=== PATIENT | female | born 1985 | race Caucasian/White ===

== ENCOUNTER 2017-01-20 20:04 | Emergency (ER) | payer OTHER ==
[~2017-01-20] VITALS: Ht 160 cm; Wt 96.1 kg
[~2017-01-20 20:04] MED LIST: DOXY100T PO; PROMSYP PO; Z.0.NO CURRENT MEDS
[2017-01-20 20:23] VITALS: BP 111/69; PULSE 118; RESP 18; TEMP 100; O2SAT 98
[2017-01-20] MEDS ORDERED: PREN29TA PO (20:35)
[2017-01-20] MEDS ORDERED: SODIUM CHLOR 0.9% 1000 ML INJ 1,000 ML IV SCH (20:39)
[2017-01-20] MEDS ORDERED: SODIUM CHLORIDE 0.9% FLUSH 10 ML FLUSH IV FLUSH PRN (20:45)
[2017-01-20] MEDS ORDERED: PROMETHAZINE INJ 25 MG/ML VIAL IM ONE (20:45)
--- NOTE | 2017-01-20 20:51 | PD ---
HPI Chief Complaint: Abdominal Pain Time Seen by Provider: 20:29 Travel History International Travel<30 days: No Contact w/Intl Traveler<30days: No Traveled to known affect area: No History of Present Illness HPI 31-year-old female complains of epigastric abdominal pain, nausea vomiting diarrhea. Patient states that the symptoms started 2 days ago. Patient is about 20 weeks with twin . Patient has been seen by implementation project coordinator. Patient states that she started having burning pain epigastric area with nausea vomiting for the past 3 days. Patient states that the pain to burning pain intermittent pain localized throughout epigastric area. Patient denies any pain radiation. Patient denies any fever chills. Patient denies any dysuria or frequency. Patient denies any vaginal discharge or bleeding. 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) Immunizations Current: No Tetanus Vaccination: Unknown Influenza Vaccination: No ?: LMP: AUG 16 Social History Alcohol Use: No Tobacco Use: No Substance Use: No Allergies-Medications (Allergen,Severity, Reaction): Coded Allergies: Sulfa (Sulfonamide Antibiotics) (Unverified Allergy, Severe, UNKNOWN, 01/20) Reported Meds & Prescriptions Reported Meds & Active Scripts Active Reported Plus Iron 29-1 mg ( Vit-Iron Carbonyl) 29 Mg Iron-1 Mg Tab 1 Tab PO DAILY Review of Systems General / Constitutional: No: Fever Eyes: No: Visual changes HENT: No: Headaches Cardiovascular: No: Chest Pain or Discomfort Respiratory: No: Shortness of Breath Gastrointestinal: Positive: Nausea, Vomiting, Diarrhea, Abdominal Pain Genitourinary: No: Dysuria Musculoskeletal: No: Pain Skin: No Rash Neurologic: No: Weakness Psychiatric: No: Depression Endocrine: No: Polydipsia Hematologic/Lymphatic: No: Easy Bruising Physical Exam Narrative GENERAL: Well-nourished, well-developed patient. SKIN: Focused skin assessment warm/dry. HEAD: Normocephalic. EYES: No scleral icterus. No injection or drainage. NECK: Supple, trachea midline. No JVD or lymphadenopathy. CARDIOVASCULAR: Regular rate and rhythm without murmurs, gallops, or rubs. RESPIRATORY: Breath sounds equal bilaterally. No accessory muscle use. GASTROINTESTINAL: Abdomen soft, nondistended. Patient has mild tenderness on palpation epigastric area. No rebound tenderness. No mass. MUSCULOSKELETAL: No cyanosis, or edema. BACK: Nontender without obvious deformity. No CVA tenderness. Neurologic exam normal. Data Data Last Documented VS Vital Signs Date Time Temp Pulse Resp B/P (MAP) Pulse Ox O2 Delivery O2 Flow Rate FiO2 01/20/17 21:01 98 01/20/17 20:35 18 01/20/17 20:23 100.0 118 111/69 (83) Orders Orders Complete Blood Count With Diff (01/20/17 20:39) Comprehensive Metabolic Panel (01/20/17 20:39) Lipase (01/20/17 20:39) Urinalysis - C+S If Indicated (01/20/17 20:39) Iv Access Insert/Monitor (01/20/17 20:39) Ecg Monitoring (01/20/17 20:39) Oximetry (01/20/17 20:39) Sodium Chlor 0.9% 1000 Ml Inj (Ns 1000 M (01/20/17 20:39) Sodium Chloride 0.9% Flush (Ns Flush) (01/20/17 20:45) Promethazine Inj (Phenergan Inj) (01/20/17 20:45) Pantoprazole (Protonix) (01/20/17 21:00) Labs Laboratory Tests Test 01/20/17 20:45 White Blood Count 11.7 TH/MM3 Red Blood Count 4.19 MIL/MM3 Hemoglobin 12.5 GM/DL Hematocrit 36.3 % Mean Corpuscular Volume 86.6 FL Mean Corpuscular Hemoglobin 30.0 PG Mean Corpuscular Hemoglobin Concent 34.6 % Red Cell Distribution Width 12.4 % Platelet Count 199 TH/MM3 Mean Platelet Volume 8.6 FL Neutrophils (%) (Auto) 87.5 % Lymphocytes (%) (Auto) 8.1 % Monocytes (%) (Auto) 3.1 % Eosinophils (%) (Auto) 0.8 % Basophils (%) (Auto) 0.5 % Neutrophils # (Auto) 10.2 TH/MM3 Lymphocytes # (Auto) 0.9 TH/MM3 Monocytes # (Auto) 0.4 TH/MM3 Eosinophils # (Auto) 0.1 TH/MM3 Basophils # (Auto) 0.1 TH/MM3 CBC Comment DIFF FINAL Differential Comment Urine Color YELLOW Urine Turbidity CLEAR Urine pH 6.0 Urine Specific Dalton 1.016 Urine Protein NEG mg/dL Urine Glucose (UA) NEG mg/dL Urine Ketones 40 mg/dL Urine Occult Blood NEG Urine Nitrite NEG Urine Bilirubin NEG Urine Leukocyte Esterase NEG Urine RBC 0-3 /hpf Urine WBC 3-5 /hpf Urine Squamous Epithelial Cells > 8 /hpf Urine Bacteria FEW /hpf Urine Mucus FEW /lpf Microscopic Urinalysis Comment CULT NOT INDICATED Blood Urea Nitrogen 5 MG/DL Creatinine 0.50 MG/DL Random Glucose 84 MG/DL Total Protein 7.4 GM/DL Albumin 2.8 GM/DL Calcium Level 8.5 MG/DL Alkaline Phosphatase 82 U/L Aspartate Amino Transf (AST/SGOT) 25 U/L Alanine Aminotransferase (ALT/SGPT) 22 U/L Total Bilirubin 0.3 MG/DL Sodium Level 138 MEQ/L Potassium Level 3.6 MEQ/L Chloride Level 107 MEQ/L Carbon Dioxide Level 21.1 MEQ/L Anion Gap 10 MEQ/L Estimat Glomerular Filtration Rate 144 ML/MIN Lipase 101 U/L [facility] Medical Decision Making Medical Screen Exam Complete: Yes Emergency Medical Condition: Yes Interpretation(s) 21:13 PM. CBC WBC 11.7. 87 neutrophil. CMP within normal limit. UA negative. Differential Diagnosis Differential diagnosis including gastritis, PUD, appendicitis, cholecystitis, colitis, UTI, pyelonephritis. Narrative Course 31-year-old female with epigastric abdominal pain, nausea vomiting diarrhea. Normal saline solution 1 L IV bolus. Phenergan 25 mg IM. Protonix 40 mg by mouth. Procedures Procedure Narrative Emergency Department Pelvic ultrasound was performed with patient consent. The curvilinear probe was used in the transverse and sagittal views within the suprapubic region revealing twin intrauterine . heart rate was in the 140s. Fetus active Diagnosis Primary Impression: Gastroenteritis Patient Instructions: General Instructions Additional Instructions: Take medications as directed. Follow-up with personal physician. Return if persistent problem or worse. Med/Other Pt SpecificInfo: Prescription(s) given Scripts Pantoprazole (Protonix) 20 Mg Tab 20 MG PO DAILY for Reflux, #14 TAB 0 Refills Prov: Owen Sherwood MD 01/20/17 Promethazine (Phenergan) 25 Mg Tablet 25 MG PO Q6H Y for NAUSEA OR VOMITING, #12 TAB 0 Refills Prov: Owen Sherwood MD 01/20/17 Disposition: 01 DISCHARGE HOME Condition: Stable Owen Sherwood MD Jan 20, 2017 20:51
[2017-01-20 20:59] LABS: BLOOD, URINE NEG (NEG); GLUCOSE,URINE NEG (NEG); KETONE, URINE 40 mg/dL (NEG); NITRITE,URINE NEG (NEG)
[2017-01-20] MEDS ORDERED: PANTOPRAZOLE SOD 40 MG DELAYED RELEASE TAB PO ONE (21:00)
[2017-01-20 21:01] VITALS: O2SAT 98
[2017-01-20 21:07] LABS: URINE COLOR YELLOW (YELLW/STRAW)
[2017-01-20 21:08] LABS: BACTERIA, URINE FEW /hpf; COMMENT (UR) CULT NOT INDICATED; CULTURE IF INDICATED CULT NOT INDICATED; MUCUS URINE FEW /lpf (OCC); RBC, URINE 0-3 /hpf (0-3); SQUAMOUS EPITHELIAL CELL URINE > 8 /hpf (0-5)
[2017-01-20 21:09] LABS: CHLORIDE 107 MEQ/L (98-107); POTASSIUM 3.6 MEQ/L (3.5-5.1); SODIUM (NA) 138 MEQ/L (136-145)
[2017-01-20 21:10] LABS: AUTOMATED NEUTROPHIL # 10.2 TH/MM3 (1.8-7.7); BASOPHIL # 0.1 TH/MM3 (0-0.2); BASOPHIL % 0.5 % (0.0-2.0); EOSINOPHIL # 0.1 TH/MM3 (0-0.4); EOSINOPHIL % 0.8 % (0.0-4.0); HEMATOCRIT 36.3 % (35.0-46.0); HEMO FLAGS DIFF FINAL; LYMPH % 8.1 % (9.0-44.0); LYMPHOCYTE # 0.9 TH/MM3 (1.0-4.8); MEAN CELL VOLUME 86.6 FL (80.0-100.0); MEAN CORPUSCULAR HGB CONC 34.6 % (32.0-36.0); MONO % 3.1 % (0.0-8.0); NEUT % 87.5 % (16.0-70.0); PLATELET COUNT 199 TH/MM3 (150-450); RED BLOOD COUNT 4.19 MIL/MM3 (4.00-5.30); RED CELL DISTRIBUTION WIDTH 12.4 % (11.6-17.2); WHITE BLOOD COUNT 11.7 TH/MM3 (4.0-11.0)
[2017-01-20 21:13] LABS: ANION GAP 10 MEQ/L (5-15); BICARBONATE 21.1 MEQ/L (21.0-32.0); BLOOD UREA NITROGEN 5 MG/DL (7-18)
[2017-01-20 21:15] LABS: ALT (GPT) 22 U/L (10-53)
[2017-01-20 21:16] LABS: AST (GOT) 25 U/L (15-37); GLOMERULAR FILTRATION RATE 144 ML/MIN (>89)
[2017-01-20 21:17] LABS: TOTAL BILIRUBIN ADULT 0.3 MG/DL (0.2-1.0)
[2017-01-20 21:18] LABS: ALKALINE PHOSPHATASE 82 U/L (45-117)
[2017-01-20] MEDS ORDERED: PANT20 PO (22:14)
[2017-01-20] MEDS ORDERED: PROM25TA10 PO (22:14)
[2017-01-20 22:15] VITALS: BP 107/69; PULSE 94; RESP 18; O2SAT 99
== END 2017-01-20 22:29 | disposition home or self-care (01) ==
LOC: PHED 20:04
DX: O99.612 Diseases of the digestive system complicating pregnancy, second trimester (principal); K52.9 Noninfective gastroenteritis and colitis, unspecified; O30.002 Twin pregnancy, unspecified number of placenta and unspecified number of amniotic sacs, second trimester; H91.92 Unspecified hearing loss, left ear; Z86.59 Personal history of other mental and behavioral disorders; Z3A.20 20 weeks gestation of pregnancy
CPT/HCPCS: 80053; 81001; 83690; 85025; 96360; 96372; 99285; J2550; J7030

== ENCOUNTER 2017-04-23 11:44 | Emergency (ER) | payer OTHER, MEDICAID ==
[~2017-04-23 11:44] MED LIST changes: -DOXY100T PO; +PANT20 PO; +PREN29TA PO; +PROM25TA10 PO; -PROMSYP PO; -Z.0.NO CURRENT MEDS
--- NOTE | 2017-04-23 13:25 | PD ---
HPI Chief Complaint blurry vision, resolved Date Seen: Apr 23, 2017 Time Seen: 13:16 Travel History International Travel<30 Days: No Contact w/Intl Traveler<30Days: No Known Affected Area: No History of Present Illness HPI 31y/p G1 @ 34.3wks. She has PNC with Dr. Clemente. conceived with clomid and is di/di twins. She presents today following an episode of acute blurry vision which was bilateral following looking at her phone and texting. She tried rubbing her eyes and taking out her contacts and cleaning them but the blurriness continued. She became very scared/anxious and come to the hospital. The blurriness resolved during that time. She does not have any h/o migraines/auras. States this has never happened to her before. She said that she recently went to see her eye doctor and was told her vision drastical changed (-5.0 to -8.0) but they advised this was common in and to await delivery before purchasing new glasses which may become obsolete post . +FM x2, no LOF, no VB, no ctx. Weeks Gestation: 34 Para: 0 : 1 History Past Medical History Narrative Medical PCOS Obstetric History Obstetric History 1. current, di/di twins from clomid Past Surgical History Surgical History: No Previous Surgery Family History Family History: Negative Social History Alcohol Use: No Tobacco Use: No Substance Abuse: No Allergies-Medications (Allergen,Severity, Reaction): Coded Allergies: Sulfa (Sulfonamide Antibiotics) (Unverified Allergy, Severe, UNKNOWN, ) Home Meds Active Scripts Pantoprazole (Protonix) 20 Mg Tab, 20 MG PO DAILY for Reflux, #14 TAB 0 Refills Prov:Owen Sherwood MD 01/20/17 Promethazine (Phenergan) 25 Mg Tablet, 25 MG PO Q6H Y for NAUSEA OR VOMITING, # 12 TAB 0 Refills Prov:Owen Sherwood MD 01/20/17 Reported Medications Vit-Iron Carbonyl ( Plus Iron 29-1 mg) 29 Mg Iron-1 Mg Tab, 1 TAB PO DAILY for Nutritional Supplement, #30 TAB 0 Refills 01/20/17 Review of Systems Except as stated in HPI: all other systems reviewed are Neg Physical Exam Narrative General: well developed, well nourished, no acute distress HEENT: normocephalic atraumatic, extraocular movements intact, neck supple Abdomen: soft, gravid, nontender, nondistended Extremities: full range of motion Skin: normal coloration, no rashes, no suspicious skin lesions noted Neurologic: cranial nerves 2-12 grossly intact, normal muscle tone, normal gait Psychiatric: normal mood and affect, appropriate FHTs: 145 x2, +accels, baby B with mild variables, moderate variability, reactive Nesco: occasional ctx Data Data Vital Signs Reviewed: Yes Orders Orders Vital Signs (Adult) .ON ADMISSION (04/23/17 13:15) ^ Labor Status (04/23/17 13:15) ^ Non Stress Test (04/23/17 13:15) Ed Discharge Order (04/23/17 13:15) MDM Plan 31y/o G1 @ 34.3wks with jerad twins and blurry vision this morning which resolved. -- NST x 2 reactive and age appropriate -- BPs normal, no s/s of preE -- likely vision related Dispo: reassurance provided, precautions reviewed, stable for d/c Diagnosis Diagnosis: Primary Impression: 34 weeks gestation of Additional Impressions: Dichorionic diamniotic twin in third trimester Blurry vision, bilateral Jayce Tripp MD Apr 23, 2017 13:25
[2017-04-23 14:01] LABS: BACTERIA, URINE OCC /hpf; BILIRUBIN, URINE NEG (NEG); BLOOD, URINE NEG (NEG); GLUCOSE,URINE NEG (NEG); KETONE, URINE NEG (NEG); NITRITE,URINE NEG (NEG); SQUAMOUS EPITHELIAL CELL URINE 4 /hpf (0-5); URINE COLOR LIGHT-YELLOW (YELLW/STRAW); URINE LEUKOCYTE ESTERASE TRACE (NEG)
== END 2017-04-23 13:31 | disposition home or self-care (01) ==
LOC: HOBED 11:44
DX: O26.893 Other specified pregnancy related conditions, third trimester (principal); H53.8 Other visual disturbances; O30.043 Twin pregnancy, dichorionic/diamniotic, third trimester; Z3A.34 34 weeks gestation of pregnancy; Z88.2 Allergy status to sulfonamides
CPT/HCPCS: 81001; 99283

== ENCOUNTER 2017-05-11 16:01 | Observation (INO) | payer OTHER, MEDICAID ==
[2017-05-11] VITALS (8 sets, daily range): BP systolic 125–137; BP diastolic 72–88; PULSE 76–92; RESP 18–19; TEMP 98.2–98.5
[~2017-05-11] VITALS: Ht 160 cm; Wt 113.0 kg
[2017-05-11] MEDS ORDERED: DOCUSATE SODIUM 100 MG CAP PO PRN (16:15)
[2017-05-11] MEDS ORDERED: NIFEdipine 10 MG CAP PO PRN (16:15)
[2017-05-11] MEDS ORDERED: ACETAMINOPHEN 325 MG TAB PO PRN (16:15)
[2017-05-11] MEDS ORDERED: CALCIUM GLUCONATE 10% 1 GM/10 ML VIAL IV PUSH PRN (16:15)
[2017-05-11] MEDS ORDERED: SODIUM CHLORIDE 0.9% FLUSH 10 ML FLUSH IV FLUSH PRN (16:15)
[2017-05-11] MEDS ORDERED: ONDANSETRON ODT 4 MG TAB PO PRN (16:15)
--- NOTE | 2017-05-11 16:46 | HHI.HP ---
HPI Chief Complaint new diagnosis gestational hypertension, RUQ pain, edema; admit for evaluation PreEclampsia Date Seen: May 11, 2017 Time Seen: 14:00 Travel History International Travel<30 Days: No Contact w/Intl Traveler<30Days: No Known Affected Area: No History of Present Illness HPI 31 yo with di/di twin (female/male) at 35w3d by LMP c/w 10 wk sonogram, admit for BP monitoring, 24h urine collection, evaluation of possible preeclampsia after being seen in office today with c/o BP reading at pharmacy 152/94 then 2 hours later 155/104. Pt had normal BP up until 33 weeks at which time mild elevation of 130/80 in office and trace proteinuria, pt was given labslip for outpt labs and 24h urine, labs showed only slight elevation in uric acid, otherwise unremarkable, and had issue with turning in 24h urine so was not completed. At visit at 34w5d BP 132/76 and trace proteinuria on office dip , labs were repeated and stable. Today pt reports increased LE and facial edema , on/off spots in vision, RUQ pain. Office BP is normal at 120/80 and no proteinuria on dip, but due to symptoms and reported elevated pressures at pharmacy x 2 this morning decision for admission for further evaluation and workup. Denies contractions, VB or LOF. Endorses FM x 2. Pain 2/10 more in extremities due to edema. Weeks Gestation: 35 Para: 0 : 1 Last Menstrual Period: Sep 05, 2016 Miscarriage: 0 : 0 History Past Medical History Narrative Medical PCOS; product of Clomid cycle chronic anxiety Obstetric History Obstetric History G1 = current, di/di twin IUP (female/male) with EDC 2/3/18 Past Surgical History Narrative Surgical denies Family History Family History: Negative Social History Alcohol Use: No Tobacco Use: No Substance Abuse: No Allergies-Medications (Allergen,Severity, Reaction): Coded Allergies: Sulfa (Sulfonamide Antibiotics) (Unverified Allergy, Severe, UNKNOWN, ) Home Meds Active Scripts Pantoprazole (Protonix) 20 Mg Tab, 20 MG PO DAILY for Reflux, #14 TAB 0 Refills Prov:Owen Sherwood MD 01/20/17 Promethazine (Phenergan) 25 Mg Tablet, 25 MG PO Q6H Y for NAUSEA OR VOMITING, # 12 TAB 0 Refills Prov:Owen Sherwood MD 01/20/17 Reported Medications Vit-Iron Carbonyl ( Plus Iron 29-1 mg) 29 Mg Iron-1 Mg Tab, 1 TAB PO DAILY for Nutritional Supplement, #30 TAB 0 Refills 01/20/17 Review of Systems General / Constitutional: Weight Gain, No: Fever, Chills, Other Eyes: Visual changes (spots on/off over past week), No: Diploplia, Blurred Vision, Pain, Photophobia HENT: No: Headaches, Vertigo, Lightheadedness Cardiovascular: Edema (LE & facial), No: Irregular Rhythm, Chest Pain or Discomfort, Palpitations, Tachycardia, Syncope, Varicosities, Cyanosis Respiratory: No: Cough, Short of Breath, Other Gastrointestinal: Abdominal Pain (RUQ, worse with sitting up, resolves with laying flat), No: Nausea, Vomiting, Diarrhea Genitourinary: Pelvic Pain (pressure), No: Decreased Urinary Output, Oliguria Musculoskeletal: Edema (LE b/l), No: Limited ROM, Weakness, Cramping, Pain Skin: No Rash, No Itching, No Dryness, No Lumps, No Change in Pigmentation, No Change in Nails, No Alopecia, No Lesions Neurologic: No: Weakness, Dizziness, Syncope, Focal Abnormalities, Coordination Problem, Headache, Slurred Speech, Seizures Psychiatric: No: Depression, Suicidal Ideations, Homicidal Ideation Endocrine: No: Heat Intolerance, Cold Intolerance, Polydipsia, Polyuria, Other Physical Exam Narrative GENERAL: Well-nourished, well-developed patient. Swollen. Face puffy. Obese. SKIN: Warm and dry. HEAD: Normocephalic and atraumatic. EYES: No scleral icterus. No injection or drainage. ENT: No nasal drainage noted. Mucous membranes pink. Airway patent. NECK: Supple, trachea midline. No JVD. CARDIOVASCULAR: Regular rate and rhythm without murmurs, gallops, or rubs. RESPIRATORY: Breath sounds equal bilaterally. No accessory muscle use. BREASTS: deferred ABDOMEN/GI: Abdomen soft, non-tender, bowel sounds present, no rebound, no guarding; no reproducible RUQ tenderness. negative Kelley sign Gravid to [35] weeks size Fundal Height:40 (twins) GENITOURINARY: External Genitalia: intact and normal in appearance swab taken for GBS in office FHT's: +FCA x 2 in office; A: 130s, B: 150s EXTREMITIES: No cyanosis; +1 edema to ankles b/l. BACK: Nontender without obvious deformity. No CVA tenderness. NEUROLOGICAL: Awake and alert. Motor and sensory grossly within normal limits. Five out of 5 muscle strength in all muscle groups. Normal speech. Caprini VTE Risk Assessment Caprini VTE Risk Assessment: No/Low Risk (score <= 1) VTE Pharm Contraindication: High risk for bleeding Caprini Risk Assessment Model Point Value = 1 Point Value = 2 Point Value = 3 Point Value = 5 Age 41-60 Minor surgery BMI > 25 kg/m2 Swollen legs Varicose veins or History of unexplained or recurrent spontaneous Oral contraceptives or hormone replacement Sepsis (< 1 month) Serious lung disease, including pneumonia (< 1 month) Abnormal pulmonary function Acute myocardial infarction Congestive heart failure (< 1 month) History of inflammatory bowel disease Medical patient at bed rest Age 61-74 Arthroscopic surgery Major open surgery (> 45 min) Laparoscopic surgery (> 45 min) Malignancy Confined to bed (> 72 hours) Immobilizing plaster cast Central venous access Age >= 75 History of VTE Family history of VTE Factor V Leiden Prothrombin [id number] Lupus anticoagulant Anticardiolipin antibodies Elevated serum homocysteine Heparin-induced thrombocytopenia Other congenital or acquired thrombophilia Stroke (< 1 month) Elective arthroplasty Hip, pelvis, or leg fracture Acute spinal cord injury (< 1 month) Prophylaxis Regimen Total Risk Factor Score Risk Level Prophylaxis Regimen 0-1 Low Early ambulation 2 Moderate Order ONE of the following: *Sequential Compression Device (SCD) *Heparin 5000 units SQ BID 3-4 Higher Order ONE of the following medications: *Heparin 5000 units SQ TID *Enoxaparin/Lovenox 40 mg SQ daily (WT < 150 kg, CrCl > 30 mL/min) *Enoxaparin/Lovenox 30 mg SQ daily (WT < 150 kg, CrCl > 10-29 mL/min) *Enoxaparin/Lovenox 30 mg SQ BID (WT < 150 kg, CrCl > 30 mL/min) AND/OR *Sequential Compression Device (SCD) 5 or more Highest Order ONE of the following medications: *Heparin 5000 units SQ TID (Preferred with Epidurals) *Enoxaparin/Lovenox 40 mg SQ daily (WT < 150 kg, CrCl > 30 mL/min) *Enoxaparin/Lovenox 30 mg SQ daily (WT < 150 kg, CrCl > 10-29 mL/min) *Enoxaparin/Lovenox 30 mg SQ BID (WT < 150 kg, CrCl > 30 mL/min) AND *Sequential Compression Device (SCD) Data Data Vital Signs Reviewed: Yes Orders Orders Place In Observation (05/11/17 ) Diet Heart Healthy (05/11/17 Dinner) Vital Signs (Adult) RT.Q1H (05/11/17 16:15) Heart (05/11/17 16:15) Activity Bed Rest With Brp (05/11/17 16:15) Complete Blood Count With Diff (05/11/17 16:15) Basic Metabolic Panel (Bmp) (05/11/17 16:15) Hepatic Functional Panel (05/11/17 16:15) Creatinine Clearance (05/11/17 16:15) Total Protein 24hr Urine (05/11/17 16:15) Uric Acid (05/11/17 16:15) Urinalysis - C+S If Indicated (05/11/17 16:15) ^ Massage (05/11/17 16:15) Acetaminophen (Tylenol) (05/11/17 16:15) Xhzwvbde-Uxg-Gavfd-Iron Prenat (Stuartna (05/12/17 09:00) Al-Mag Hy-Si 40-40-4 Mg/Ml Liq (Mag-Al P (05/11/17 16:15) Sodium Chloride 0.9% Flush (Ns Flush) (05/11/17 21:00) Sodium Chloride 0.9% Flush (Ns Flush) (05/11/17 16:15) Ondansetron Odt (Zofran Odt) (05/11/17 16:15) Hold Clot (05/11/17 16:15) Code Status (05/11/17 16:15) Intake + Output Q1H (05/11/17 16:15) Notify Parameters (05/11/17 16:15) ^ Check Deep Tendon Reflexes Q1H (05/11/17 16:15) Nifedipine (Procardia) (05/11/17 16:15) Betamethasone Inj (Celestone Soluspan In (05/11/17 16:15) Calcium Gluconate Inj (Calcium Gluconate (05/11/17 16:15) Docusate Sodium (Colace) (05/11/17 16:15) Specimen To Be Collected PRN (05/11/17 16:15) Labs GBS pending; performed in office 05/11/17 Assessment/Plan Problem List: (1) Gestational hypertension ICD Codes: O13.9 - Gestational [-induced] hypertension without significant proteinuria, unspecified trimester Qualifiers: Qualified Codes: O13.3 - Gestational [-induced] hypertension without significant proteinuria, third trimester (2) Dichorionic diamniotic twin in third trimester ICD Codes: O30.043 - Twin , dichorionic/diamniotic, third trimester Status: Acute (3) RUQ abdominal pain ICD Codes: R10.11 - Right upper quadrant pain Status: Acute (4) Edema during in third trimester ICD Codes: O12.03 - Gestational edema, third trimester Status: Acute Assessment and Plan 31 yo with di/di twin IUP (female/male) at 35w3d, EDC 06/12/17, admit for BP monitoring, 24h urine collection, labwork to evaluate possible PreEclampsia 1) GHTN, possible Preeclampsia: pt with mild elevation of BP starting at 33 wks with moderate range pressures today 150s/90s-100s reported taken by pt; increased LE & facial edema, spots in vision and RUQ pain; concern for PreEclampsia; admit, monitor BP & status, start 24h urine collection, labs ordered, will order RUQ sonogram to evaluate pain; pt aware if symptoms or pressures worsen would plan delivery; betamethasone ordered for prematurity 2) RUQ pain: sonogram ordered; symptoms not consistent; may just be pressure from twin ; pt reports worst with sitting and resolves with laying flat 3) GBS pending 4) di/di twin : continuous monitoring for now; if reactive NST and BP normal can plan FHTs with vitals; otherwise keep continuous; will plan growth and BPP in AM with OB diagnostics; last sono 04/27/17 showed A 1689g breech, B 2014g vertex; last ultrasound for position showed Br/Br on 05/06/18; pt aware if delivery indicated she would be for 5) dispo: not meeting criteria Discharge Planning not meeting criteria Darshana Clemente MD May 11, 2017 16:46
[2017-05-11 17:53] LABS: AUTOMATED NEUTROPHIL # 9.1 TH/MM3 (1.8-7.7); BASOPHIL % 0.3 % (0.0-2.0); EOSINOPHIL # 0.1 TH/MM3 (0-0.4); EOSINOPHIL % 0.5 % (0.0-4.0); HEMATOCRIT 33.8 % (35.0-46.0); HEMOGLOBIN 11.6 GM/DL (11.6-15.3); LYMPH % 15.3 % (9.0-44.0); LYMPHOCYTE # 1.8 TH/MM3 (1.0-4.8); MEAN CELL VOLUME 84.3 FL (80.0-100.0); MEAN CORPUSCULAR HGB CONC 34.4 % (32.0-36.0); MEAN PLATELET VOLUME 10.4 FL (7.0-11.0); MONO % 6.1 % (0.0-8.0); MONOCYTE # 0.7 TH/MM3 (0-0.9); NEUT % 77.8 % (16.0-70.0); PLATELET COUNT 183 TH/MM3 (150-450); RED CELL DISTRIBUTION WIDTH 14.7 % (11.6-17.2); WHITE BLOOD COUNT 11.7 TH/MM3 (4.0-11.0)
[2017-05-11 17:57] LABS: BACTERIA, URINE OCC /hpf; BILIRUBIN, URINE NEG (NEG); BLOOD, URINE NEG (NEG); CALCIUM OXALATE CRYSTALS,URINE MANY /hpf; GLUCOSE,URINE NEG (NEG); KETONE, URINE NEG (NEG); NITRITE,URINE NEG (NEG); PH, URINE 5.5 (5.0-8.5); SQUAMOUS EPITHELIAL CELL URINE 17 /hpf (0-5); URINE COLOR YELLOW (YELLW/STRAW); URINE LEUKOCYTE ESTERASE LARGE (NEG)
[2017-05-11] MEDS: BETAMETHASONE SOD PHOS/ACETATE SUSP 30 MG/5 ML VIAL IM SCH (18:14)
[2017-05-11 18:27] LABS: ALBUMIN 2.3 GM/DL (3.4-5.0); BICARBONATE 22.4 MEQ/L (21.0-32.0); CALCIUM 8.8 MG/DL (8.5-10.1); CREATININE 0.88 MG/DL (0.50-1.00); DIRECT BILIRUBIN ADULT 0.1 MG/DL (0.0-0.2)
[2017-05-11 18:30] LABS: INDIRECT BILIRUBIN 0.1 MG/DL (0.0-0.8); TOTAL BILIRUBIN ADULT 0.2 MG/DL (0.2-1.0); TOTAL PROTEIN 6.2 GM/DL (6.4-8.2)
[2017-05-11] MEDS: SODIUM CHLORIDE 0.9% FLUSH 10 ML FLUSH IV FLUSH SCH (21:00)
[2017-05-12] VITALS (12 sets, daily range): BP systolic 114–134; BP diastolic 70–90; PULSE 83–120; RESP 16–20; TEMP 97.9–98.2
[2017-05-12] MEDS: ALUMINUM/MAGNESIUM/SIMETH 30 ML CUP PO PRN ×3 (03:13→16:28)
--- NOTE | 2017-05-12 06:41 | PD.OB.ANTE ---
Subjective Diagnosis: (1) Gestational hypertension Diagnosis: Principal (2) Dichorionic diamniotic twin in third trimester Diagnosis: Principal (3) RUQ abdominal pain Diagnosis: Principal (4) Edema during in third trimester Diagnosis: Principal Interval History pt continues to have LE edema, intermittent RUQ pain, intermittent spots in vision since admission. No headache, no nausea. Pt NPO in preparation for RUQ sonogram. Reactive NST x 2 overnight for di/di twin . BPs essentially wnl since admission, only one value elevated, none severe. 24h urine will be due this afternoon after 5pm. Antepartum ROS: Reports: movement normal, Denies: New complaints, Loss of fluid, Vaginal bleeding, Contractions, Other Objective Vital Signs Vital Signs Date Time Temp Pulse Resp B/P (MAP) Pulse Ox O2 Delivery O2 Flow Rate FiO2 05/12/17 02:50 98.2 83 20 114/70 (85) 05/11/17 22:05 76 125/72 (89) 05/11/17 20:16 18 05/11/17 20:16 98.2 05/11/17 20:15 90 127/73 (91) 05/11/17 19:46 92 127/77 (94) 05/11/17 19:45 98.5 19 05/11/17 18:12 81 137/83 (101) 05/11/17 17:45 18 05/11/17 17:30 89 129/88 (102) Lab & Micro Results Test 05/11/17 16:40 05/11/17 17:20 Urine Color YELLOW Urine Turbidity HAZY Urine pH 5.5 Urine Specific [place] 1.020 Urine Protein 30 mg/dL Urine Glucose (UA) NEG mg/dL Urine Ketones NEG mg/dL Urine Occult Blood NEG Urine Nitrite NEG Urine Bilirubin NEG Urine Urobilinogen LESS THAN 2.0 MG/DL Urine Leukocyte Esterase LARGE Urine RBC 6 /hpf Urine WBC 7 /hpf Urine Squamous Epithelial Cells 17 /hpf Urine Calcium Oxalate Crystals MANY /hpf Urine Bacteria OCC /hpf Microscopic Urinalysis Comment CULT NOT INDICATED White Blood Count 11.7 TH/MM3 Red Blood Count 4.00 MIL/MM3 Hemoglobin 11.6 GM/DL Hematocrit 33.8 % Mean Corpuscular Volume 84.3 FL Mean Corpuscular Hemoglobin 29.0 PG Mean Corpuscular Hemoglobin Concent 34.4 % Red Cell Distribution Width 14.7 % Platelet Count 183 TH/MM3 Mean Platelet Volume 10.4 FL Neutrophils (%) (Auto) 77.8 % Lymphocytes (%) (Auto) 15.3 % Monocytes (%) (Auto) 6.1 % Eosinophils (%) (Auto) 0.5 % Basophils (%) (Auto) 0.3 % Neutrophils # (Auto) 9.1 TH/MM3 Lymphocytes # (Auto) 1.8 TH/MM3 Monocytes # (Auto) 0.7 TH/MM3 Eosinophils # (Auto) 0.1 TH/MM3 Basophils # (Auto) 0.0 TH/MM3 CBC Comment DIFF FINAL Differential Comment Blood Urea Nitrogen 9 MG/DL Creatinine 0.88 MG/DL Random Glucose 82 MG/DL Total Protein 6.2 GM/DL Albumin 2.3 GM/DL Calcium Level 8.8 MG/DL Uric Acid 6.9 MG/DL Alkaline Phosphatase 154 U/L Aspartate Amino Transf (AST/SGOT) 14 U/L Alanine Aminotransferase (ALT/SGPT) 13 U/L Total Bilirubin 0.2 MG/DL Direct Bilirubin 0.1 MG/DL Sodium Level 139 MEQ/L Potassium Level 4.2 MEQ/L Chloride Level 110 MEQ/L Carbon Dioxide Level 22.4 MEQ/L Anion Gap 7 MEQ/L Estimat Glomerular Filtration Rate 75 ML/MIN Indirect Bilirubin 0.1 MG/DL Physical Exam GENERAL: Well-nourished, well-developed patient. Obese. Swollen appearance in face, extremities; no change from admission. CARDIOVASCULAR: Regular rate and rhythm without murmurs, gallops, or rubs. RESPIRATORY: Breath sounds equal bilaterally. No accessory muscle use. ABDOMEN/GI: Abdomen soft, non-tender. Fundus: [twins, larger than dates due to this] GENITOURINARY: External Genitalia: deferred FHT's: R NST x 2; baseline 140s & 150s for twin A& B EXTREMITIES: No cyanosis, non-tender, without signs of DVT. 2+ edema to b/l ankles, stable since admission Assessment and Plan Problem List: (1) Gestational hypertension ICD Codes: O13.9 - Gestational [-induced] hypertension without significant proteinuria, unspecified trimester Qualifiers: Qualified Codes: O13.3 - Gestational [-induced] hypertension without significant proteinuria, third trimester (2) Dichorionic diamniotic twin in third trimester ICD Codes: O30.043 - Twin , dichorionic/diamniotic, third trimester Status: Acute (3) RUQ abdominal pain ICD Codes: R10.11 - Right upper quadrant pain Status: Acute (4) Edema during in third trimester ICD Codes: O12.03 - Gestational edema, third trimester Status: Acute Assessment and Plan 31 yo with di/di twin IUP (female/male) admit 05/11/17, now HD#2, 35w4d today , EDC 06/12/17, admitted for BP monitoring, 24h urine collection, labwork to evaluate possible PreEclampsia 1) GHTN, possible Preeclampsia: pt with mild elevation of BP starting at 33 wks with moderate range pressures reported on home check on 05/11/17, reported 150s/ 90s-100s range; increased also with LE & facial edema, spots in vision and RUQ pain; concern for PreEclampsia; admitted, monitoring BP & status, started 24h urine collection, labs ordered and all but uric acid wnl; ordered RUQ sonogram to evaluate pain; pt NPO in preparation for RUQ sono; pt aware if symptoms or pressures worsen would plan delivery; betamethasone ordered for prematurity 2) RUQ pain: sonogram ordered, pt NPO in preparation; symptoms not consistent; may just be pressure from twin ; pt reports worst with sitting and resolves with laying flat 3) GBS pending, performed in office 05/11/17 4) di/di twin : R NST x 2 this AM; for BPP and growth today at OB Dx; last sono in office on 04/27/17 showed A 1689g breech, B 2014g vertex; last ultrasound for position showed Br/Br on 05/06/17; pt aware if delivery indicated she would be for 5) dispo: not meeting criteria, will await results of RUQ sono, imaging, and 24h urine; may be able to d/c this evening if BP remain normal and no worsening of symptoms Darshana Clemente MD May 12, 2017 06:41
[2017-05-12] MEDS: MULTIVIT/MIN/PREN/FOL AC/IRON PRENATAL TAB PO SCH ×2 (08:34→09:00)
[2017-05-12] MEDS: SODIUM CHLORIDE 0.9% FLUSH 10 ML FLUSH IV FLUSH SCH (08:34)
--- NOTE | 2017-05-12 09:48 | RADRPT ---
EXAM DATE/TIME: 05/12/2017 08:00 [facility] COMPARISON: No previous studies available for comparison. INDICATIONS : Right upper quadrant. Nausea/vomiting. Possible preeclampsia. MEDICAL HISTORY : . Anxiety. SURGICAL HISTORY : None. ENCOUNTER: Initial ACUITY: 3 days PAIN SCORE: 6/10 LOCATION: Bilateral upper quadrant MEASUREMENTS: LIVER: 15.4 cm length COMMON DUCT: 5 mm RIGHT KIDNEY: 12.1 x 4.8 x 5.5 cm SPLEEN: 10.5 cm length FINDINGS: Ultrasound of the upper abdomen demonstrates normal echogenicity of the liver. No intrahepatic or ext ra hepatic ductal dilatation is seen. There is hepatopedal flow through the portal vein. There is a small amount of right-sided effusion. The right renal pelvis is dilated likely related to the pregnan t state. The gallbladder and pancreas are unremarkable. No intrahepatic or extrahepatic ductal dilata tion is seen. CONCLUSION: 1. No evidence of acute abdominal process. No masses are identified. Small right effusion Sanket Padilla MD on May 12, 2017 at 9:45 Board Certified Radiologist. This report was verified electronically.
--- NOTE | 2017-05-12 16:45 | HHI.DS ---
Admission Date May 11, 2017 at 16:01 Discharge Date: May 12, 2017 Admitting Diagnosis Twin , PIH Diagnosis: Delivery Date: May 12, 2017 (UNDELIVERED) Brief History 31 yo with di/di twin (female/male) at 35w3d by LMP c/w 10 wk sonogram, admit for BP monitoring, 24h urine collection, evaluation of possible preeclampsia after being seen in office today with c/o BP reading at pharmacy 152/94 then 2 hours later 155/104. Pt had normal BP up until 33 weeks at which time mild elevation of 130/80 in office and trace proteinuria, pt was given labslip for outpt labs and 24h urine, labs showed only slight elevation in uric acid, otherwise unremarkable, and had issue with turning in 24h urine so was not completed. At visit at 34w5d BP 132/76 and trace proteinuria on office dip , labs were repeated and stable. Today pt reports increased LE and facial edema , on/off spots in vision, RUQ pain. Office BP is normal at 120/80 and no proteinuria on dip, but due to symptoms and reported elevated pressures at pharmacy x 2 this morning decision for admission for further evaluation and workup. Denies contractions, VB or LOF. Endorses FM x 2. Pain 2/10 more in extremities due to edema. STABLE FOR DISCHARGE AFTER SECOND DOSE OF BETAMETHASONE Pt Condition on Discharge: Good Discharge Disposition: Discharge Home Discharge Instructions Diet Instructions: As Tolerated, No Restrictions Activities You Can Perform: Pelvic Rest, Continue Bedrest Activities to Avoid: Prolonged Standing, Strenuous Activity, Driving, Sexual Activity Jamie Mark MD May 12, 2017 16:45
[2017-05-12] MEDS: BETAMETHASONE SOD PHOS/ACETATE SUSP 30 MG/5 ML VIAL IM SCH (18:04)
== END 2017-05-12 18:27 | disposition home or self-care (01) ==
LOC: H2EA 16:01 → H2EB 17:29
PROVIDERS: ADMIT Obstetrics & Gynecology; ATTEND Obstetrics & Gynecology
DX: O13.3 Gestational [pregnancy-induced] hypertension without significant proteinuria, third trimester (principal); O12.03 Gestational edema, third trimester; Z3A.35 35 weeks gestation of pregnancy; O30.043 Twin pregnancy, dichorionic/diamniotic, third trimester; R10.11 Right upper quadrant pain
CPT/HCPCS: 59025; 76705; 76816; 76819; 76820; 80048; 80076; 81001; 82575; 84157; 84550; 85025; 96372; G0378; J0702

== ENCOUNTER 2017-05-20 09:42 | Emergency (ER) | payer OTHER, MEDICAID ==
[2017-05-20] MEDS ORDERED: LACTATED RINGER'S 1000 ML INJ 1,000 ML IV SCH (10:00)
[2017-05-20] MEDS ORDERED: SODIUM CHLORIDE 0.9% FLUSH 10 ML FLUSH IV FLUSH SCH (10:00)
[2017-05-20] MEDS ORDERED: SODIUM CHLORIDE 0.9% FLUSH 10 ML FLUSH IV FLUSH PRN (10:00)
--- NOTE | 2017-05-20 10:17 | HHI.HP ---
HPI Chief Complaint seen in office for routine testing, di/di twins with GHTN; twin B 6/8 BPP, unable to monitor twin NST in office, to L&D for additional evaluation Date Seen: May 20, 2017 Time Seen: 09:45 Travel History International Travel<30 Days: No Contact w/Intl Traveler<30Days: No Known Affected Area: No History of Present Illness HPI 31 yo G1 with di/di twin (used Clomid) at 36w5d presented to office for routine biweekly testing due to gestational hypertension and twins. Twin A had 8/8 BPP but Twin B 6/8, -2 for breathing. Unable to monitor NST x 2 in office so pt sent to L&D triage for monitoring. Denies contractions, VB, LOF. Endorses movement x 2. No vision changes, no headache. Has edema for past few weeks, unchanged today. Has chronic RUQ discomfort due to Twin B position, negative workup previously in hospital for PreEclampsia and liver/ gallbladder issues. Pt scheduled for primary due to twins and malpresentation on Wednesday05/24/17. Patient reports pain 2/10 pressure in pelvis , chronic, unchanged over past week. Weeks Gestation: 36 Para: 0 : 1 Last Menstrual Period: Sep 05, 2016 Miscarriage: 0 : 0 History Past Medical History Narrative Medical chronic anxiety, PCOS, obese Obstetric History Obstetric History G1 = current, di/di twins, A female breech, B male vertex Past Surgical History Narrative Surgical denies Family History Family History: Negative Social History Alcohol Use: No Tobacco Use: No Substance Abuse: No Allergies-Medications (Allergen,Severity, Reaction): Coded Allergies: Sulfa (Sulfonamide Antibiotics) (Unverified Allergy, Severe, Rash, 05/20/17 ) Home Meds Reported Medications Ranitidine (Zantac) 150 Mg Tab, 150 MG PO BID for Reduce Stomach Acid, #60 TAB 0 Refills 05/20/17 Vit-Iron Carbonyl ( Plus Iron 29-1 mg) 29 Mg Iron-1 Mg Tab, 1 TAB PO DAILY for Nutritional Supplement, #30 TAB 0 Refills 01/20/17 Discontinued Scripts Pantoprazole (Protonix) 20 Mg Tab, 20 MG PO DAILY for Reflux, #14 TAB 0 Refills Prov:Owen Sherwood MD 01/20/17 Promethazine (Phenergan) 25 Mg Tablet, 25 MG PO Q6H Y for NAUSEA OR VOMITING, # 12 TAB 0 Refills Prov:Owen Sherwood MD 01/20/17 Review of Systems General / Constitutional: Weight Gain, No: Fever, Chills, Other Eyes: No: Diploplia, Blurred Vision, Visual changes, Pain, Photophobia HENT: No: Headaches, Vertigo, Lightheadedness Cardiovascular: Edema (bl LE ), No: Irregular Rhythm, Chest Pain or Discomfort , Palpitations, Tachycardia, Syncope, Varicosities, Cyanosis Respiratory: No: Cough, Short of Breath, Other Gastrointestinal: Abdominal Pain (mild RUQ chronic third trimester, positional due to baby B), No: Nausea, Vomiting, Diarrhea Genitourinary: Pelvic Pain (pressure), No: Decreased Urinary Output, Oliguria Musculoskeletal: No: Limited ROM, Weakness, Cramping, Edema, Pain Skin: No Rash, No Itching, No Dryness, No Lumps, No Change in Pigmentation, No Change in Nails, No Alopecia, No Lesions Neurologic: No: Weakness, Dizziness, Syncope, Focal Abnormalities, Coordination Problem, Headache, Slurred Speech, Seizures Psychiatric: No: Depression, Suicidal Ideations, Homicidal Ideation Endocrine: No: Heat Intolerance, Cold Intolerance, Polydipsia, Polyuria, Other Physical Exam Narrative GENERAL: Well-nourished, well-developed patient. Obese. SKIN: Warm and dry. HEAD: Normocephalic and atraumatic. EYES: No scleral icterus. No injection or drainage. ENT: No nasal drainage noted. Mucous membranes pink. Airway patent. NECK: Supple, trachea midline. No JVD. CARDIOVASCULAR: Regular rate and rhythm without murmurs, gallops, or rubs. RESPIRATORY: Breath sounds equal bilaterally. No accessory muscle use. BREASTS: deferred ABDOMEN/GI: Abdomen soft, non-tender, bowel sounds present, no rebound, no guarding Gravid to [36] Fundal Height: [obese] GENITOURINARY: External Genitalia: cl/50/-3 Presentation: [A breech (maternal Left) B vtx (,maternal right)] Membranes: [intact] Uterine Contractions: [rare] FHT's: pending NST on L&D; 150s x 2 on sono at office EXTREMITIES: No cyanosis; +1 edema to mid-shins b/l. BACK: Nontender without obvious deformity. No CVA tenderness. NEUROLOGICAL: Awake and alert. Motor and sensory grossly within normal limits. Five out of 5 muscle strength in all muscle groups. Normal speech. Caprini VTE Risk Assessment Caprini VTE Risk Assessment: No/Low Risk (score <= 1) VTE Pharm Contraindication: High risk for bleeding Caprini Risk Assessment Model Point Value = 1 Point Value = 2 Point Value = 3 Point Value = 5 Age 41-60 Minor surgery BMI > 25 kg/m2 Swollen legs Varicose veins or History of unexplained or recurrent spontaneous Oral contraceptives or hormone replacement Sepsis (< 1 month) Serious lung disease, including pneumonia (< 1 month) Abnormal pulmonary function Acute myocardial infarction Congestive heart failure (< 1 month) History of inflammatory bowel disease Medical patient at bed rest Age 61-74 Arthroscopic surgery Major open surgery (> 45 min) Laparoscopic surgery (> 45 min) Malignancy Confined to bed (> 72 hours) Immobilizing plaster cast Central venous access Age >= 75 History of VTE Family history of VTE Factor V Leiden Prothrombin [id number] Lupus anticoagulant Anticardiolipin antibodies Elevated serum homocysteine Heparin-induced thrombocytopenia Other congenital or acquired thrombophilia Stroke (< 1 month) Elective arthroplasty Hip, pelvis, or leg fracture Acute spinal cord injury (< 1 month) Prophylaxis Regimen Total Risk Factor Score Risk Level Prophylaxis Regimen 0-1 Low Early ambulation 2 Moderate Order ONE of the following: *Sequential Compression Device (SCD) *Heparin 5000 units SQ BID 3-4 Higher Order ONE of the following medications: *Heparin 5000 units SQ TID *Enoxaparin/Lovenox 40 mg SQ daily (WT < 150 kg, CrCl > 30 mL/min) *Enoxaparin/Lovenox 30 mg SQ daily (WT < 150 kg, CrCl > 10-29 mL/min) *Enoxaparin/Lovenox 30 mg SQ BID (WT < 150 kg, CrCl > 30 mL/min) AND/OR *Sequential Compression Device (SCD) 5 or more Highest Order ONE of the following medications: *Heparin 5000 units SQ TID (Preferred with Epidurals) *Enoxaparin/Lovenox 40 mg SQ daily (WT < 150 kg, CrCl > 30 mL/min) *Enoxaparin/Lovenox 30 mg SQ daily (WT < 150 kg, CrCl > 10-29 mL/min) *Enoxaparin/Lovenox 30 mg SQ BID (WT < 150 kg, CrCl > 30 mL/min) AND *Sequential Compression Device (SCD) Data Data Vital Signs Reviewed: Yes Orders Orders Diet Npo (05/20/17 Breakfast) Heart (05/20/17 10:00) ^ Monitor (05/20/17 10:00) Activity Bed Rest (05/20/17 10:00) Complete Blood Count With Diff (05/20/17 10:00) Basic Metabolic Panel (Bmp) (05/20/17 10:00) Uric Acid (05/20/17 10:00) Lactated Ringer's 1000 Ml Inj (Lr 1000 M (05/20/17 10:00) Sodium Chloride 0.9% Flush (Ns Flush) (05/20/17 10:00) Sodium Chloride 0.9% Flush (Ns Flush) (05/20/17 10:00) Group B Strep: Negative Assessment/Plan Problem List: (1) Dichorionic diamniotic twin in third trimester ICD Codes: O30.043 - Twin , dichorionic/diamniotic, third trimester Status: Acute (2) Gestational hypertension ICD Codes: O13.9 - Gestational [-induced] hypertension without significant proteinuria, unspecified trimester Status: Acute Qualifiers: Qualified Codes: O13.3 - Gestational [-induced] hypertension without significant proteinuria, third trimester Assessment and Plan 31 yo G1 with di/di twin at 36w5d sent to L&D for NST x 2 due to 6/8 BPP Twin B in office (-2 for breathing) - monitor with NST in triage, hydrate with IVF, due to gestational HTN labs ordered as well, have been trending weekly and not yet done this week; mild at this point - if reactive NST x 2 will consider discharge with labor precautions; has scheduled due to malpresentation on Wednesday05/24/17 Addendum: reactive NST x 2, pt's BPs are mild and she is asymptomatic, labs are stable, not severe, not PreEclamptic; at this time ok for discharge to home with labor precautions, si/sx of PreEclampsia precautions, and plan for scheduled Wednesday05/24/17 Discharge Planning discharge to home Darshana Clemente MD May 20, 2017 10:17
[2017-05-20] MEDS ORDERED: ZANT150T2 PO (10:34)
[2017-05-20 10:36] LABS: AUTOMATED NEUTROPHIL # 8.7 TH/MM3 (1.8-7.7); BASOPHIL # 0.1 TH/MM3 (0-0.2); BASOPHIL % 0.6 % (0.0-2.0); EOSINOPHIL # 0.1 TH/MM3 (0-0.4); EOSINOPHIL % 0.6 % (0.0-4.0); HEMATOCRIT 31.4 % (35.0-46.0); HEMOGLOBIN 10.5 GM/DL (11.6-15.3); LYMPH % 16.8 % (9.0-44.0); LYMPHOCYTE # 1.9 TH/MM3 (1.0-4.8); MEAN CELL VOLUME 83.7 FL (80.0-100.0); MEAN CORPUSCULAR HEMOGLOBIN 27.9 PG (27.0-34.0); MEAN CORPUSCULAR HGB CONC 33.3 % (32.0-36.0); MEAN PLATELET VOLUME 10.9 FL (7.0-11.0); MONO % 6.2 % (0.0-8.0); MONOCYTE # 0.7 TH/MM3 (0-0.9); NEUT % 75.8 % (16.0-70.0); PLATELET COUNT 176 TH/MM3 (150-450); RED BLOOD COUNT 3.75 MIL/MM3 (4.00-5.30); RED CELL DISTRIBUTION WIDTH 14.9 % (11.6-17.2); WHITE BLOOD COUNT 11.5 TH/MM3 (4.0-11.0)
[2017-05-20 10:55] LABS: CALCIUM 8.3 MG/DL (8.5-10.1); CREATININE 0.69 MG/DL (0.50-1.00)
== END 2017-05-20 11:09 | disposition home or self-care (01) ==
LOC: HOBED 09:42
DX: O32.9XX0 Maternal care for malpresentation of fetus, unspecified, not applicable or unspecified (principal); O30.043 Twin pregnancy, dichorionic/diamniotic, third trimester; O13.3 Gestational [pregnancy-induced] hypertension without significant proteinuria, third trimester; O99.213 Obesity complicating pregnancy, third trimester; O99.343 Other mental disorders complicating pregnancy, third trimester; F41.9 Anxiety disorder, unspecified; Z3A.36 36 weeks gestation of pregnancy
CPT/HCPCS: 59025; 80048; 84550; 85025; 96360; 99284; J7120

== ENCOUNTER 2017-05-24 09:12 | Inpatient (IN) | payer OTHER, MEDICAID ==
[2017-05-24] VITALS (23 sets, daily range): BP systolic 114–158; BP diastolic 73–99; PULSE 79–120; RESP 17–20; TEMP 97.5–99; O2SAT 96–98
--- NOTE | 2017-05-24 07:48 | HHI.HP ---
HPI Chief Complaint di/di twin , for primary at 37w2d due to malpresentation, gestational hypertension with proteinuria; scheduled Date Seen: May 24, 2017 Travel History International Travel<30 Days: No Contact w/Intl Traveler<30Days: No Known Affected Area: No History of Present Illness HPI 31 yo with di/di twin IUP with EDC 06/12/17, 37w2d today by 10 w ultrasound c /w LMP, presents for scheduled due to malpresentation, gestational hypertension with proteinuria, diagnosed at 35 weeks. Pt has been receiving twice weekly testing with no signs of severity. On last office ultrasound Twin A (female, anterior placenta) breech, Twin B (male, posterior placenta) vertex. Patient's is a product of Clomid ovulation induction. Other health problems include obesity and chronic anxiety, prior to was taking escitalopram 10mg daily, desires to restart . Blood pressures have been mild to moderate range, pt has not required antihypertensives. Pain 2/10 pelvic pressure, irregular contractions. Denies LOF or VB. Endorses FM x 2. Has been on bedrest since 35 weeks due to gestational hypertension with proteinuria diagnosis. Weeks Gestation: 37 Para: 0 : 1 Last Menstrual Period: Sep 05, 2016 Miscarriage: 0 : 0 History Past Medical History Narrative Medical chronic anxiety polycystic ovarian syndrome gestational hypertension Obstetric History Obstetric History G1 = current, di/di twin Past Surgical History Narrative Surgical denies Family History Family History: Negative Social History Alcohol Use: No Tobacco Use: No Substance Abuse: No Allergies-Medications (Allergen,Severity, Reaction): Coded Allergies: Sulfa (Sulfonamide Antibiotics) (Unverified Allergy, Severe, Rash, 05/20/17 ) Home Meds Reported Medications Ranitidine (Zantac) 150 Mg Tab, 150 MG PO BID for Reduce Stomach Acid, #60 TAB 0 Refills 05/20/17 Vit-Iron Carbonyl ( Plus Iron 29-1 mg) 29 Mg Iron-1 Mg Tab, 1 TAB PO DAILY for Nutritional Supplement, #30 TAB 0 Refills 01/20/17 Discontinued Scripts Pantoprazole (Protonix) 20 Mg Tab, 20 MG PO DAILY for Reflux, #14 TAB 0 Refills Prov:Owen Sherwood MD 01/20/17 Promethazine (Phenergan) 25 Mg Tablet, 25 MG PO Q6H Y for NAUSEA OR VOMITING, # 12 TAB 0 Refills Prov:Owen Sherwood MD 01/20/17 Review of Systems General / Constitutional: Weight Gain, No: Fever, Chills, Other Eyes: No: Diploplia, Blurred Vision, Visual changes, Pain, Photophobia HENT: No: Headaches, Vertigo, Lightheadedness Cardiovascular: No: Irregular Rhythm, Chest Pain or Discomfort, Palpitations, Tachycardia, Syncope, Varicosities, Edema, Cyanosis Respiratory: No: Cough, Short of Breath, Other Gastrointestinal: No: Nausea, Vomiting, Diarrhea Genitourinary: Pelvic Pain (pressure), No: Decreased Urinary Output, Oliguria Musculoskeletal: No: Limited ROM, Weakness, Cramping, Edema, Pain Skin: No Rash, No Itching, No Dryness, No Lumps, No Change in Pigmentation, No Change in Nails, No Alopecia, No Lesions Neurologic: No: Weakness, Dizziness, Syncope, Focal Abnormalities, Coordination Problem, Headache, Slurred Speech, Seizures Psychiatric: No: Depression, Suicidal Ideations, Homicidal Ideation Endocrine: No: Heat Intolerance, Cold Intolerance, Polydipsia, Polyuria, Other Physical Exam Narrative GENERAL: Well-nourished, well-developed patient. SKIN: Warm and dry. HEAD: Normocephalic and atraumatic. EYES: No scleral icterus. No injection or drainage. ENT: No nasal drainage noted. Mucous membranes pink. Airway patent. NECK: Supple, trachea midline. No JVD. CARDIOVASCULAR: Regular rate and rhythm without murmurs, gallops, or rubs. RESPIRATORY: Breath sounds equal bilaterally. No accessory muscle use. BREASTS: deferred. ABDOMEN/GI: Abdomen soft, non-tender, bowel sounds present, no rebound, no guarding Gravid to [37] weeks size Fundal Height: [obese] GENITOURINARY: deferred FHT's: pending NST EXTREMITIES: No cyanosis; +1 edema to b/l shins. BACK: Nontender without obvious deformity. No CVA tenderness. NEUROLOGICAL: Awake and alert. Motor and sensory grossly within normal limits. Five out of 5 muscle strength in all muscle groups. Normal speech. Caprini VTE Risk Assessment Caprini VTE Risk Assessment: No/Low Risk (score <= 1) VTE Pharm Contraindication: High risk for bleeding Caprini Risk Assessment Model Point Value = 1 Point Value = 2 Point Value = 3 Point Value = 5 Age 41-60 Minor surgery BMI > 25 kg/m2 Swollen legs Varicose veins or History of unexplained or recurrent spontaneous Oral contraceptives or hormone replacement Sepsis (< 1 month) Serious lung disease, including pneumonia (< 1 month) Abnormal pulmonary function Acute myocardial infarction Congestive heart failure (< 1 month) History of inflammatory bowel disease Medical patient at bed rest Age 61-74 Arthroscopic surgery Major open surgery (> 45 min) Laparoscopic surgery (> 45 min) Malignancy Confined to bed (> 72 hours) Immobilizing plaster cast Central venous access Age >= 75 History of VTE Family history of VTE Factor V Leiden Prothrombin [id number] Lupus anticoagulant Anticardiolipin antibodies Elevated serum homocysteine Heparin-induced thrombocytopenia Other congenital or acquired thrombophilia Stroke (< 1 month) Elective arthroplasty Hip, pelvis, or leg fracture Acute spinal cord injury (< 1 month) Prophylaxis Regimen Total Risk Factor Score Risk Level Prophylaxis Regimen 0-1 Low Early ambulation 2 Moderate Order ONE of the following: *Sequential Compression Device (SCD) *Heparin 5000 units SQ BID 3-4 Higher Order ONE of the following medications: *Heparin 5000 units SQ TID *Enoxaparin/Lovenox 40 mg SQ daily (WT < 150 kg, CrCl > 30 mL/min) *Enoxaparin/Lovenox 30 mg SQ daily (WT < 150 kg, CrCl > 10-29 mL/min) *Enoxaparin/Lovenox 30 mg SQ BID (WT < 150 kg, CrCl > 30 mL/min) AND/OR *Sequential Compression Device (SCD) 5 or more Highest Order ONE of the following medications: *Heparin 5000 units SQ TID (Preferred with Epidurals) *Enoxaparin/Lovenox 40 mg SQ daily (WT < 150 kg, CrCl > 30 mL/min) *Enoxaparin/Lovenox 30 mg SQ daily (WT < 150 kg, CrCl > 10-29 mL/min) *Enoxaparin/Lovenox 30 mg SQ BID (WT < 150 kg, CrCl > 30 mL/min) AND *Sequential Compression Device (SCD) Data Data Vital Signs Reviewed: Yes Assessment/Plan Problem List: (1) malpresentation ICD Codes: O32.9XX0 - Maternal care for malpresentation of fetus, unspecified, not applicable or unspecified Qualifiers: Qualified Codes: O32.1XX1 - Maternal care for breech presentation, fetus 1 (2) Dichorionic diamniotic twin in third trimester ICD Codes: O30.043 - Twin , dichorionic/diamniotic, third trimester Status: Acute (3) Gestational hypertension ICD Codes: O13.9 - Gestational [-induced] hypertension without significant proteinuria, unspecified trimester Status: Acute Qualifiers: Qualified Codes: O13.3 - Gestational [-induced] hypertension without significant proteinuria, third trimester Assessment and Plan 31 yo with di/di twin IUP at 37w2d admit for scheduled due to malpresentation, gestational hypertension with proteinuria 1) malpresentation: r/b/a of CD d/w pt , AQA, consents signed 2) GHTN w proteinuria: no si/sx of severity, BP mild-mod range, continue to monitor closely 3) chronic anxiety: was controlled on escitalopram 10mg daily prior to ; pt desires to restart ; will be bottle feeding 4) status: di/di twins; Twin A female breech anterior placenta, Twin B male vertex posterior placenta; reassuring testing twice weekly since 32 weeks Discharge Planning 3d PP Darshana Clemenet MD May 24, 2017 07:48
[~2017-05-24 09:12] MED LIST changes: -PANT20 PO; -PROM25TA10 PO; +ZANT150T2 PO
[2017-05-24] MEDS ORDERED: LACTATED RINGER'S 1000 ML INJ 1,000 ML IV ONE (10:59)
[2017-05-24 11:56] LABS: AUTOMATED NEUTROPHIL # 9.9 TH/MM3 (1.8-7.7); BASOPHIL % 0.3 % (0.0-2.0); EOSINOPHIL % 0.4 % (0.0-4.0); HEMATOCRIT 34.8 % (35.0-46.0); HEMOGLOBIN 11.6 GM/DL (11.6-15.3); LYMPH % 15.1 % (9.0-44.0); LYMPHOCYTE # 1.9 TH/MM3 (1.0-4.8); MEAN CORPUSCULAR HEMOGLOBIN 27.6 PG (27.0-34.0); MEAN CORPUSCULAR HGB CONC 33.3 % (32.0-36.0); MEAN PLATELET VOLUME 9.7 FL (7.0-11.0); MONO % 5.1 % (0.0-8.0); MONOCYTE # 0.6 TH/MM3 (0-0.9); NEUT % 79.1 % (16.0-70.0); PLATELET COUNT 182 TH/MM3 (150-450); RED BLOOD COUNT 4.19 MIL/MM3 (4.00-5.30); RED CELL DISTRIBUTION WIDTH 15.3 % (11.6-17.2); WHITE BLOOD COUNT 12.5 TH/MM3 (4.0-11.0)
[2017-05-24] MEDS ORDERED: ONDANSETRON HCL 4 MG/2 ML VIAL IV ONE (12:00)
[2017-05-24] MEDS ORDERED: ceFAZolin 2 GM PREMIX 50 ML IV SCH (12:00)
[2017-05-24] MEDS ORDERED: PHENYLEPH/NS 1000 MCG/10 ML SYR IV ONE (12:00)
[2017-05-24] MEDS ORDERED: DEXAMETHASONE SOD PHOS 4 MG/ML VIAL IV ONE (12:00)
[2017-05-24] MEDS ORDERED: OXYTOCIN 10 UNIT/ML AMP IV ONE (12:00)
[2017-05-24] MEDS ORDERED: ePHEDrine/NS 25 MG/5 ML SYRINGE IV ONE (12:00)
[2017-05-24] MEDS: LACTATED RINGER'S 1000 ML INJ 1,000 ML IV SCH ×2 (12:10→12:11)
[2017-05-24 12:13] LABS: BACTERIA, URINE OCC /hpf; BILIRUBIN, URINE NEG (NEG); BLOOD, URINE NEG (NEG); GLUCOSE,URINE NEG (NEG); KETONE, URINE NEG (NEG); MUCUS URINE FEW /lpf (OCC); NITRITE,URINE NEG (NEG); PH, URINE 5.5 (5.0-8.5); SQUAMOUS EPITHELIAL CELL URINE 14 /hpf (0-5); URINE COLOR YELLOW (YELLW/STRAW); URINE LEUKOCYTE ESTERASE TRACE (NEG)
[2017-05-24] MEDS ORDERED: CITRIC ACID-SODIUM CITRATE LIQ 30 ML UDC PO SCH (12:30)
[2017-05-24] MEDS ORDERED: MORPHINE SULFATE PF 5 MG/10 ML VIAL ONE (12:53)
--- NOTE | 2017-05-24 14:09 | PD.OB.DELI ---
Procedure Note Section Procedure Pre Op Diagnosis: (1) malpresentation (2) Dichorionic diamniotic twin in third trimester (3) Gestational hypertension Post Op Diagnosis: (1) S/P primary low transverse (2) malpresentation (3) Dichorionic diamniotic twin in third trimester (4) Gestational hypertension Performed by Darshana Clemente Procedure: Primary Low Transverse Sec Indication for delivery: malposition (twin A rell breech) Informed consent obtained: For anesthesia, For procedure Confirmed correct: Patient, Procedure, Site, Time-out taken Anesthesia: Spinal Medication prior to procedure: As documented in eMAR Monitoring during procedure: Blood pressure monitoring, surveillance monitor, Pulse oximetry Urinary catheter: Inserted using sterile technique, To dependent drainage Sterile preparation: Duraprep, In usual fashion, With 2% chlorexidine ( Hibiclens), With drapes to expose affected area Position: Supine with wedge to right side Operative Features Skin Incision: Pfannenstiel Uterine Incision: Low transverse w/knife / scissors Membranes Ruptured: Artificially (x 2), Amount of liquid (copious x 2, clear x 2) Presentation: Breech (Twin A), Vertex (Twin B) Delivery date: May 24, 2017 Delivery time: 13:24 (B: 1326) Delivery of infant: Uneventful Infant: Male (B), Female (A), Multiple One Minute : 8 (x2) Five Minute : 9 (x2) Weight: A: 4#10oz, B: 5#2oz Status of infant: Viable (x2), Cord blood (x2), Nursery present Placenta delivered: Intact Medications: Antibiotics (standard preop Ancef 2g IV) Procedure tolerated: Well Maternal Condition: Stable Condition: Stable Procedure in detail see dictated op note for full details Darshana Clemente MD May 24, 2017 14:09
[2017-05-24] MEDS ORDERED: ACETAMINOPHEN 325 MG TAB PO PRN (14:15)
[2017-05-24] MEDS ORDERED: OXYTOCIN 30 UNITS-500ML PREMIX 500 ML IV ONE (14:15)
[2017-05-24] MEDS ORDERED: SIMETHICONE 80 MG CHEWABLE TAB PO PRN (14:15)
[2017-05-24] MEDS ORDERED: SODIUM CHLORIDE 0.9% FLUSH 10 ML FLUSH IV FLUSH PRN (14:15)
[2017-05-24] MEDS ORDERED: ACETAMINOPHEN 1000 MG/100 ML 100 ML IV ONE ×2 (14:15→14:25)
[2017-05-24] MEDS ORDERED: ONDANSETRON HCL 4 MG/2 ML VIAL IV PUSH PRN (14:15)
[2017-05-24] MEDS: SODIUM CHLORIDE 0.9% FLUSH 10 ML FLUSH IV FLUSH SCH (14:15)
[2017-05-24] MEDS ORDERED: OXYTOCIN 30 UNITS-500ML PREMIX 500 ML ONE (14:25)
--- NOTE | 2017-05-24 15:07 | MP ---
cc: MELVA WHATLEY M.D. DATE OF SURGERY 05/24/2017 PREOPERATIVE DIAGNOSIS 1. Diamniotic dichorionic twin intrauterine . 2. malpresentation, twin A breech. 3. Gestational hypertension with proteinuria. 4. Obesity. POSTOPERATIVE DIAGNOSIS 1. Diamniotic dichorionic twin intrauterine . 2. malpresentation, twin A breech. 3. Gestational hypertension with proteinuria. 4. Obesity. 5. Post-op day 0. INDICATIONS Mallory Rosa is a 31-year-old 1, now para 1-0-0-1, who has been seen and evaluated for care with finding of diamniotic dichorionic twin . At around 35 weeks' gestation the patient started to have elevated blood pressures and proteinuria. Her symptoms were mild, she was monitored twice weekly, but due to this it was decided that delivery was indicated at 37 weeks. Due to malpresentation of twin A being rell breech it was decided that was indicated. PROCEDURE PERFORMED Primary low transverse delivery. SURGEON Melva Whatley M.D. ANESTHESIA Spinal. COMPLICATIONS None. COUNTS Sponge, lap, instrument and needle count correct x2 at the conclusion of the procedure. PROPHYLAXIS Ancef 2 grams IV was given preoperatively. SCDs on and functioning throughout the entire case. INTRAOPERATIVE FINDINGS Both infants had clear and copious amniotic fluid. Twin A was in rell breech position, Apgars 8 and 9, weight 4 pounds 10 ounces. Twin A is female. Twin B was in vertex position, Apgars 8 and 9, weight 5 pounds 2 ounces. Placentas were intact and normal-appearing for both infants. The uterus was normal appearance. Ovaries were enlarged and elongated consistent with polycystic ovarian syndrome history. Fallopian tubes within normal limits. SPECIMEN None. PROCEDURE IN DETAIL After reviewing the informed consent the patient was taken to the operating suite where a timeout was performed to identify the patient, planned procedure and any known allergies to drugs or drug products. The patient was placed sitting up on the operative table and spinal anesthesia was administered without difficulty and found to be adequate. The patient was then laid in dorsal supine position with bump under her right side and abdomen and perineum were prepped and draped in normal sterile fashion. A Fried catheter was placed using sterile technique. Attention was turned abdominally where a Pfannenstiel type skin incision was made with a scalpel, carried down to the underlying layer of fascia with the Bovie. Fascia was incised in the midline. The incision was extended laterally with sharp dissection using Sevilla scissors. Fascia was elevated and rectus muscles were dissected off sharply with Sevilla scissors. Rectus muscles were then in the midline. Peritoneum was identified and entered bluntly. Incision was extended with good visualization of intra-abdominal contents. Bladder blade was placed. A bladder flap was not made. A low transverse uterine incision was made with a scalpel. A's presenting part was the rump. This was grasped, elevated out through the incision and easily delivered, the rest of the body & head readily followed. The was crying upon delivery. She had slightly poor tone but was able to be stimulated easily. Delayed cord clamping of 45 seconds was performed. The infant was then handed off to the awaiting nursery staff. Attention was then turned to twin B. The amniotic sac was ruptured with copious clear fluid. Infant B's head was grasped and flexed out through the incision and delivered easily with gentle maneuvering. Again 45-second delay on cord clamping was performed. Cord was then clamped and cut and was handed off to the awaiting nursery staff. Cord segment and cord blood sample were taken of both placentas. The placentas were then delivered spontaneously with gentle cord traction and fundal massage. The uterus was exteriorized, cleared of all clots and debris with sterile moist lap sponges. The hysterotomy was repaired in a double layer with #1 chromic first in a running locked fashion then in an imbricating layer. The posterior cul-de-sac was irrigated copiously with warm sterile saline. Excellent hemostasis was noted. The uterus was returned to the abdomen. Additional irrigation with suction was performed. The peritoneum was closed in a running layer of 2-0 chromic. The fascia was closed in a running layer with #1 Vicryl. Due to the thickness of the subcutaneous tissue this was irrigated and suctioned and closed in a series of interrupted sutures using 2-0 chromic. The skin was then closed with 3-0 Monocryl. The skin was cleaned and dried and Steri-Strips were placed. The procedure concluded at this point. The patient tolerated the procedure well. Infants are nursery status. DISPOSITION The patient's estimated length of stay is three postoperative days. MD SHERWIN Chung /2:08 PM /2:46 PM [facility]ITALYok[facility]
[2017-05-24] MEDS ORDERED: LACTATED RINGER'S 1000 ML INJ 1,000 ML IV SCH (19:05)
[2017-05-24] MEDS: KETOROLAC TROMETHAMINE 60 MG/2 ML (IM) VIAL IM PRN (20:00)
[2017-05-24] MEDS: DOCUSATE SODIUM 50 MG/SENNA 8.6 MG TAB PO SCH (20:01)
[2017-05-24] MEDS ORDERED: ZOLPIDEM TARTRATE 5 MG TAB PO PRN (21:00)
[2017-05-25] MEDS ORDERED: OXYTOCIN 30 UNITS-500ML PREMIX 500 ML IV PRN (00:15)
[2017-05-25] MEDS: KETOROLAC TROMETHAMINE 60 MG/2 ML (IM) VIAL IM PRN (03:09)
[2017-05-25 03:45] VITALS: BP 130/90; TEMP 98.1
[2017-05-25 05:54] LABS: AUTOMATED NEUTROPHIL # 13.4 TH/MM3 (1.8-7.7); BASOPHIL % 0.3 % (0.0-2.0); EOSINOPHIL % 0.1 % (0.0-4.0); HEMATOCRIT 26.7 % (35.0-46.0); HEMOGLOBIN 8.7 GM/DL (11.6-15.3); LYMPH % 11.8 % (9.0-44.0); LYMPHOCYTE # 1.9 TH/MM3 (1.0-4.8); MEAN CELL VOLUME 84.6 FL (80.0-100.0); MEAN CORPUSCULAR HEMOGLOBIN 27.5 PG (27.0-34.0); MEAN CORPUSCULAR HGB CONC 32.5 % (32.0-36.0); MONOCYTE # 1.2 TH/MM3 (0-0.9); NEUT % 80.8 % (16.0-70.0); PLATELET COUNT 126 TH/MM3 (150-450); RED BLOOD COUNT 3.15 MIL/MM3 (4.00-5.30); WHITE BLOOD COUNT 16.6 TH/MM3 (4.0-11.0)
[2017-05-25] MEDS: oxyCODONE/ACETAMINOPHEN 5 MG/325 MG TAB PO PRN ×5 (06:29→22:56)
--- NOTE | 2017-05-25 07:53 | HHI.OB ---
Subjective Post Operative Day: 1 Remarks s/p primary LTCD of twins for malpresentation at 37w2d for gestational hypertension with proteinuria, mild Objective Vitals/I&O Vital Signs Date Time Temp Pulse Resp B/P (MAP) Pulse Ox O2 Delivery O2 Flow Rate FiO2 05/25/17 03:45 130/90 (103) 05/25/17 03:45 98.1 05/24/17 23:45 79 18 114/75 (88) 96 05/24/17 23:45 97.5 05/24/17 21:00 18 05/24/17 20:45 97.8 93 18 98 05/24/17 20:45 121/86 (98) 05/24/17 19:45 98.1 05/24/17 19:45 88 18 130/89 (103) 05/24/17 15:45 17 05/24/17 15:15 98.0 05/24/17 15:11 85 05/24/17 15:11 18 05/24/17 15:09 140/73 (95) 05/24/17 15:00 158/87 (110) 05/24/17 14:59 88 17 05/24/17 14:45 20 05/24/17 14:45 153/93 (113) 05/24/17 14:45 84 05/24/17 14:30 17 05/24/17 14:30 145/93 (110) 05/24/17 14:29 92 05/24/17 14:15 117/94 (102) 05/24/17 14:15 142/88 (106) 05/24/17 14:15 94 05/24/17 14:13 18 05/24/17 14:00 97.5 99 19 142/88 (106) 05/24/17 12:10 96 05/24/17 12:05 90 05/24/17 12:02 89 05/24/17 12:02 125/88 (100) 05/24/17 12:00 97 05/24/17 12:00 99.0 18 05/24/17 11:55 86 05/24/17 11:50 93 05/24/17 11:45 102 05/24/17 11:26 120 139/99 (112) Result Diagram: 05/25/17 0533 Objective Remarks GENERAL: Well-nourished, well-developed patient. Obese. CARDIOVASCULAR: Regular rate and rhythm without murmurs, gallops, or rubs. RESPIRATORY: Breath sounds equal bilaterally. No accessory muscle use. ABDOMEN/GI: Abdomen soft, non-tender, bowel sounds present. Incision: bandage Clean, dry and intact. Fundus: Firm, non-tender at umbilicus. GENITOURINARY: Light bleeding. EXTREMITIES: No cyanosis or edema, non-tender, without signs of DVT. Medications and IVs Current Medications Medications (Trade) Dose Ordered Sig/Mari Route Start Time Stop Time Status Last Admin Lactated Ringer's 1,000 ml @ 100 mls/hr Q10H IV 05/24/17 19:05 05/25/17 15:04 05/24/17 22:00 Oxytocin 500 ml @ 100 mls/hr UNSCH X1 PRN IV 05/25/17 00:15 05/26/17 00:14 (NS Flush) 2 ml BID IV FLUSH 05/24/17 14:15 (NS Flush) 2 ml UNSCH PRN IV FLUSH 05/24/17 14:15 (Mylicon Chew) 80 mg QID PRN PO 05/24/17 14:15 (Tylenol) 650 mg Q6H PRN PO 05/24/17 14:15 (Motrin) 600 mg Q6H PRN PO 05/24/17 14:15 (Toradol Inj) 30 mg Q6H PRN IM 05/24/17 14:15 05/25/17 14:14 05/25/17 03:09 (Percocet 5-325 Mg) 1 tab Q4H PRN PO 05/24/17 14:15 05/25/17 06:29 (Percocet 5-325 Mg) 2 tab Q4H PRN PO 05/24/17 14:15 (Lexi-Colace) 2 tab Q12H PO 05/24/17 21:00 05/24/17 20:01 (Ambien) 5 mg HS PRN PO 05/24/17 21:00 (M-M-R Ii Inj) 0.5 ml ONCE ONCE SQ 05/25/17 16:00 05/25/17 16:01 (Boostrix Inj) 0.5 ml ONCE ONCE IM 05/25/17 16:00 05/25/17 16:01 05/24/17 22:11 (Zofran Inj) 4 mg Q6H PRN IV PUSH 05/24/17 14:15 (Lexapro) 10 mg DAILY PO 05/25/17 09:00 (Flu (Quadrivalent) Vaccine Inj) 0.5 ml ONCE ONCE IM 05/25/17 10:00 05/25/17 10:01 Assessment/Plan Problem List: (1) malpresentation ICD Codes: O32.9XX0 - Maternal care for malpresentation of fetus, unspecified, not applicable or unspecified Qualifiers: Qualified Codes: O32.1XX1 - Maternal care for breech presentation, fetus 1 (2) Dichorionic diamniotic twin in third trimester ICD Codes: O30.043 - Twin , dichorionic/diamniotic, third trimester Status: Acute (3) Gestational hypertension ICD Codes: O13.9 - Gestational [-induced] hypertension without significant proteinuria, unspecified trimester Status: Acute Qualifiers: Qualified Codes: O13.3 - Gestational [-induced] hypertension without significant proteinuria, third trimester Assessment and Plan 31 yo s/p primary LTCD of di/di twins for malpresentation at 37w2d due to gestational hypertension with proteinuria 1) POD#1: doing well, ambulating, voiding; encouraged to shower, remove bandage ; bottle feeding 2) GHTN w proteinuria: no si/sx of severity, BP mild-mod range, continue to monitor closely 3) chronic anxiety: was controlled on escitalopram 10mg daily prior to ; pt desires to restart ; will be bottle feeding; Rx ordered 4) infant status: A female B male nursery status doing well 5) dispo: not yet meeting criteria, anticipate d/c POD#3 Discharge Planning 3d PP Darshana Clemente MD May 25, 2017 07:53
[2017-05-25] MEDS ORDERED: PERI PO (07:55)
[2017-05-25] MEDS ORDERED: ESCI10TA PO (07:55)
[2017-05-25] MEDS ORDERED: IBUP-232 PO (07:55)
[2017-05-25] MEDS ORDERED: OXYC1TAB63 PO (07:55)
[2017-05-25 08:45] VITALS: BP 117/80; PULSE 83; RESP 18; TEMP 97.8
[2017-05-25] MEDS: DOCUSATE SODIUM 50 MG/SENNA 8.6 MG TAB PO SCH (09:09)
[2017-05-25] MEDS: ESCITALOPRAM OXALATE 10 MG TAB PO SCH (09:09)
[2017-05-25] MEDS ORDERED: INFLUENZA VIRUS VACCINE (QUADRIVALENT) 0.5 ML SYR IM ONE (10:00)
[2017-05-25] MEDS: IBUPROFEN 600 MG TAB PO PRN ×2 (11:06→19:08)
[2017-05-25 13:27] VITALS: BP 128/85; PULSE 84; RESP 20; TEMP 97.9
[2017-05-25] MEDS ORDERED: DIPHTH/TETANUS/ACEL PERTUSSIS (BOOSTER) 0.5 ML VIAL/PFS IM ONE (16:00)
[2017-05-25] MEDS ORDERED: MEASLES, MUMPS, RUBELLA VACCINE 0.5 ML VIAL SQ ONE (16:00)
[2017-05-25 20:16] VITALS: BP 121/79; PULSE 81; RESP 18; TEMP 97.6
[2017-05-26] MEDS: IBUPROFEN 600 MG TAB PO PRN ×4 (03:00→21:10)
[2017-05-26] MEDS: oxyCODONE/ACETAMINOPHEN 5 MG/325 MG TAB PO PRN ×4 (03:00→21:10)
--- NOTE | 2017-05-26 08:21 | HHI.OB ---
Subjective Post Operative Day: 2 Remarks doing well, was OOB yesterday, +flatus Objective Vitals/I&O Vital Signs Date Time Temp Pulse Resp B/P (MAP) Pulse Ox O2 Delivery O2 Flow Rate FiO2 05/25/17 20:16 97.6 81 18 121/79 (93) 05/25/17 13:27 84 20 128/85 (99) 05/25/17 13:27 97.9 05/25/17 08:45 97.8 83 18 117/80 (92) Result Diagram: 05/25/17 0533 Objective Remarks GENERAL: Well-nourished, well-developed patient. Obese. CARDIOVASCULAR: Regular rate and rhythm without murmurs, gallops, or rubs. RESPIRATORY: Breath sounds equal bilaterally. No accessory muscle use. ABDOMEN/GI: Abdomen soft, non-tender, bowel sounds present. Incision: Clean, dry and intact. Fundus: Firm, non-tender at umbilicus. GENITOURINARY: Light bleeding. EXTREMITIES: No cyanosis or edema, non-tender, without signs of DVT. Medications and IVs Current Medications Medications (Trade) Dose Ordered Sig/Mari Route Start Time Stop Time Status Last Admin (NS Flush) 2 ml BID IV FLUSH 05/24/17 14:15 (NS Flush) 2 ml UNSCH PRN IV FLUSH 05/24/17 14:15 (Mylicon Chew) 80 mg QID PRN PO 05/24/17 14:15 05/26/17 03:04 (Tylenol) 650 mg Q6H PRN PO 05/24/17 14:15 (Motrin) 600 mg Q6H PRN PO 05/24/17 14:15 05/26/17 03:00 (Percocet 5-325 Mg) 1 tab Q4H PRN PO 05/24/17 14:15 05/25/17 15:22 (Percocet 5-325 Mg) 2 tab Q4H PRN PO 05/24/17 14:15 05/26/17 03:00 (Lexi-Colace) 2 tab Q12H PO 05/24/17 21:00 05/25/17 09:09 (Ambien) 5 mg HS PRN PO 05/24/17 21:00 (Zofran Inj) 4 mg Q6H PRN IV PUSH 05/24/17 14:15 (Lexapro) 10 mg DAILY PO 05/25/17 09:00 05/25/17 09:09 Assessment/Plan Problem List: (1) malpresentation ICD Codes: O32.9XX0 - Maternal care for malpresentation of fetus, unspecified, not applicable or unspecified Qualifiers: Qualified Codes: O32.1XX1 - Maternal care for breech presentation, fetus 1 (2) Dichorionic diamniotic twin in third trimester ICD Codes: O30.043 - Twin , dichorionic/diamniotic, third trimester Status: Acute (3) Gestational hypertension ICD Codes: O13.9 - Gestational [-induced] hypertension without significant proteinuria, unspecified trimester Status: Acute Qualifiers: Qualified Codes: O13.3 - Gestational [-induced] hypertension without significant proteinuria, third trimester Assessment and Plan 31 yo s/p primary LTCD of di/di twins for malpresentation at 37w2d due to gestational hypertension with proteinuria 1) POD#2: doing well, ambulating, voiding 2) GHTN w proteinuria: no si/sx of severity, BP mild-mod range, continue to monitor closely 3) chronic anxiety: was controlled on escitalopram 10mg daily prior to ; pt desires to restart ; will be bottle feeding; Rx ordered 4) status: A female B male nursery status doing well 5) dispo: not yet meeting criteria, anticipate d/c POD#3 Discharge Planning 3d PP Attending Attestation pt seen by me, Gwendolyn Garner MD May 26, 2017 08:21
[2017-05-26] MEDS: DOCUSATE SODIUM 50 MG/SENNA 8.6 MG TAB PO SCH (09:33)
[2017-05-26] MEDS: ESCITALOPRAM OXALATE 10 MG TAB PO SCH (09:33)
[2017-05-26] MEDS: SODIUM CHLORIDE 0.9% FLUSH 10 ML FLUSH IV FLUSH SCH (09:33)
[2017-05-26 15:30] VITALS: BP 129/89; PULSE 90; RESP 16; TEMP 98.1
[2017-05-26 20:45] VITALS: BP 133/93; PULSE 100; RESP 20; TEMP 98.7; O2SAT 97
[2017-05-26 23:57] VITALS: BP 149/87; PULSE 70; RESP 20; TEMP 98.2; O2SAT 98
[2017-05-27] MEDS: oxyCODONE/ACETAMINOPHEN 5 MG/325 MG TAB PO PRN ×3 (02:26→08:57)
[2017-05-27] MEDS: IBUPROFEN 600 MG TAB PO PRN ×2 (03:19→08:56)
[2017-05-27 03:25] VITALS: BP 112/74; PULSE 78
--- NOTE | 2017-05-27 04:10 | HHI.DCPOC ---
Discharge Care Plan Diagnosis: (1) S/P primary low transverse Your Health Problems Are: delivery Report Symptoms to Your Doctor -Temperature above 100.5 degrees -Redness, of incision or excessive or foul smelling drainage -Unusual pain or calf pain -Increased vaginal bleeding -Painful or difficulty urinating -Feelings of extreme sadness or anxiety after 2 weeks Goals to Promote Your Health * To prevent worsening of your condition and complications * To maintain your health at the optimal level Directions to Meet Your Goals Take your medications as prescribed Follow your dietary instruction Follow activity as directed Ensure plenty of rest for recovery Drink fluids for hydration Keep your appointments as scheduled Take your immunizations and boosters as scheduled If your symptoms worsen call your PCP, if no PCP go to Urgent Care Center or Emergency Room Smoking is Dangerous to Your Health. Avoid second hand smoke Call the 24-hour crisis hotline for domestic abuse at Darshana Clemente MD May 27, 2017 04:10
[2017-05-27 08:35] VITALS: BP 146/92; PULSE 86; RESP 14; TEMP 98.3
--- NOTE | 2017-05-27 08:41 | HHI.OB ---
Subjective Post Operative Day: 3 Objective Vitals/I&O Vital Signs Date Time Temp Pulse Resp B/P (MAP) Pulse Ox O2 Delivery O2 Flow Rate FiO2 05/27/17 03:25 78 112/74 (87) 05/26/17 23:57 98.2 70 20 149/87 (107) 98 05/26/17 20:45 98.7 100 20 133/93 (106) 97 05/26/17 15:30 98.1 90 16 129/89 (102) Result Diagram: 05/25/17 0533 Objective Remarks GENERAL: Well-nourished, well-developed patient. Obese. CARDIOVASCULAR: Regular rate and rhythm without murmurs, gallops, or rubs. RESPIRATORY: Breath sounds equal bilaterally. No accessory muscle use. ABDOMEN/GI: Abdomen soft, non-tender, bowel sounds present. Incision: Clean, dry and intact. steri-strips in place. Fundus: Firm, non-tender at umbilicus. GENITOURINARY: Light bleeding. EXTREMITIES: No cyanosis or edema, non-tender, without signs of DVT. Medications and IVs Current Medications Medications (Trade) Dose Ordered Sig/Mari Route Start Time Stop Time Status Last Admin (NS Flush) 2 ml BID IV FLUSH 05/24/17 14:15 (NS Flush) 2 ml UNSCH PRN IV FLUSH 05/24/17 14:15 (Mylicon Chew) 80 mg QID PRN PO 05/24/17 14:15 05/26/17 03:04 (Tylenol) 650 mg Q6H PRN PO 05/24/17 14:15 (Motrin) 600 mg Q6H PRN PO 05/24/17 14:15 05/27/17 03:19 (Percocet 5-325 Mg) 1 tab Q4H PRN PO 05/24/17 14:15 05/27/17 03:19 (Percocet 5-325 Mg) 2 tab Q4H PRN PO 05/24/17 14:15 05/26/17 13:09 (Lexi-Colace) 2 tab Q12H PO 05/24/17 21:00 05/26/17 09:33 (Ambien) 5 mg HS PRN PO 05/24/17 21:00 (Zofran Inj) 4 mg Q6H PRN IV PUSH 05/24/17 14:15 (Lexapro) 10 mg DAILY PO 05/25/17 09:00 05/26/17 09:33 Assessment/Plan Problem List: (1) malpresentation ICD Codes: O32.9XX0 - Maternal care for malpresentation of fetus, unspecified, not applicable or unspecified Qualifiers: Qualified Codes: O32.1XX1 - Maternal care for breech presentation, fetus 1 (2) Dichorionic diamniotic twin in third trimester ICD Codes: O30.043 - Twin , dichorionic/diamniotic, third trimester Status: Acute (3) Gestational hypertension ICD Codes: O13.9 - Gestational [-induced] hypertension without significant proteinuria, unspecified trimester Status: Acute Qualifiers: Qualified Codes: O13.3 - Gestational [-induced] hypertension without significant proteinuria, third trimester Assessment and Plan 31 yo s/p primary LTCD of di/di twins for malpresentation at 37w2d due to gestational hypertension with proteinuria 1) POD#3: doing well, ambulating, voiding, +flatus; meeting all criteria, discharge to home 2) GHTN w proteinuria: no si/sx of severity, BP mild-mod range, no need for treatment; will plan 1 week f/u in office 3) chronic anxiety: was controlled on escitalopram 10mg daily prior to ; pt desires to restart ; will be bottle feeding; Rx ordered & pt doing well 4) infant status: A female B male nursery status doing well 5) dispo: meeting criteria, d/c to home Discharge Planning today Darshana Clemente MD May 27, 2017 08:41
[2017-05-27] MEDS: DOCUSATE SODIUM 50 MG/SENNA 8.6 MG TAB PO SCH (08:56)
[2017-05-27] MEDS: ESCITALOPRAM OXALATE 10 MG TAB PO SCH (08:57)
[2017-05-27] MEDS: SODIUM CHLORIDE 0.9% FLUSH 10 ML FLUSH IV FLUSH SCH (09:00)
[2017-05-27 12:18] VITALS: BP 122/85; PULSE 88
[2017-05-27 12:19] VITALS: BP 122/85; PULSE 88
== END 2017-05-27 13:01 | disposition home or self-care (01) | DRG 765 ==
LOC: H2EB 10:52 → H1EA 15:40
PROVIDERS: ADMIT Obstetrics & Gynecology; ATTEND Obstetrics & Gynecology
PROC: 10D00Z1 Extraction of Products of Conception, Low, Open Approach (ICD-10-PCS; principal; 2017-05-24)
DX: O13.4 Gestational [pregnancy-induced] hypertension without significant proteinuria, complicating childbirth (principal); O30.043 Twin pregnancy, dichorionic/diamniotic, third trimester; Z37.2 Twins, both liveborn; O32.1XX1 Maternal care for breech presentation, fetus 1; O99.344 Other mental disorders complicating childbirth; O32.1XX2 Maternal care for breech presentation, fetus 2; Z3A.37 37 weeks gestation of pregnancy; F41.9 Anxiety disorder, unspecified; E28.2 Polycystic ovarian syndrome; O12.14 Gestational proteinuria, complicating childbirth
CPT/HCPCS: 59025; 80307; 81001; 82805; 85025; 86850; 86900; 86901; 90715; J0131; J0690; J1100; J1885; J2274; J2370; J2405; J2590; J7120